=== PATIENT | female | born 1985 | race Caucasian/White ===

== ENCOUNTER 2018-03-12 12:44 | Emergency (ER) | payer OTHER, BC ==
[~2018-03-12] VITALS: Ht 154.9 cm; Wt 59.0 kg
[2018-03-12 13:11] VITALS: BP 132/81
[2018-03-12] MEDS ORDERED: IBUPROFEN 800 MG TABLET. PO ONE (13:15)
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
[2018-03-12] MEDS ORDERED: IBUP-1060 PO (14:30)
[2018-03-12] MEDS ORDERED: CYCL5TAB PO (14:30)
== END 2018-03-12 14:37 | disposition home or self-care (01) ==
LOC: ER 12:44
DX: S16.1XXA Strain of muscle, fascia and tendon at neck level, initial encounter (principal); M48.02 Spinal stenosis, cervical region; M54.5 Low back pain; F41.9 Anxiety disorder, unspecified; F32.9 Major depressive disorder, single episode, unspecified; V49.9XXA Car occupant (driver) (passenger) injured in unspecified traffic accident, initial encounter; Y93.89 Activity, other specified; Y92.488 Other paved roadways as the place of occurrence of the external cause; Y99.8 Other external cause status
CPT/HCPCS: 72100; 72125; 99284